=== PATIENT | male | born 1995 | race Caucasian/White ===

== ENCOUNTER 2017-06-10 22:00 | Emergency (ER) | payer SELFPAY ==
[2017-06-11 00:21] VITALS: BP 132/94
== END 2017-06-11 01:04 | disposition home or self-care (01) ==
LOC: ED 22:00
DX: S39.012A Strain of muscle, fascia and tendon of lower back, initial encounter (principal); M54.42 Lumbago with sciatica, left side; X58.XXXA Exposure to other specified factors, initial encounter; Y93.89 Activity, other specified; Y99.8 Other external cause status; Y92.89 Other specified places as the place of occurrence of the external cause
CPT/HCPCS: J1885

== ENCOUNTER 2017-06-18 04:23 | Emergency (ER) | payer SELFPAY ==
[2017-06-18 05:58] VITALS: BP 133/74
== END 2017-06-18 05:58 | disposition home or self-care (01) ==
LOC: ED 04:23
DX: M54.42 Lumbago with sciatica, left side (principal)